=== PATIENT | female | born 1965 | race Caucasian/White ===

== ENCOUNTER → 2016-11-07 | Day surgery (SDC) | payer OTHER ==
[~2016-11-07] VITALS: Ht 170.1 cm; Wt 72.6 kg
[~2016-11-07] MED LIST: ALBUTEROL0.09 MG/A2 INH; ASPIRIN NON IR325 MG PO; CIPROFLOXACIN500 MG PO; HYDROCODONE BIT1 T11 PO; MOTRIN800 MG PO; NKHM PO; NORCO 5-325 TA1 EACH PO; PERCOCET 325 MG1 TA2 PO; PHENERGAN25 M1 PO; PRAVACHOL40 MG PO; Wellbutrin Sr100 MG PO; ZITHROMAX Z PA250 MG PO
--- NOTE | ~2016-11-07 | O ---
[place], [place] OPERATIVE NOTE NAME: OFE PANDYA [facility] #: [id number] UNIT #: [id number] ROOM: DOCTOR: REESE RODAS MD BIRTHDATE: [birth year] DOS: 11/07/2016 PREOPERATIVE DIAGNOSIS: Carcinoma of the left breast, need for chemotherapy, hence need for MediPort. POSTOPERATIVE DIAGNOSIS: Carcinoma of the left breast, need for chemotherapy, hence need for MediPort. PROCEDURE: Right subclavian MediPort insertion under fluoroscopy. SURGEON: Reese Rodas MD DESCRIPTION OF PROCEDURE: After MAC anesthesia, the right subclavicular area prepped and draped in normal sterile fashion. The 1% Xylocaine and bicarbonate infiltrated under the lateral one third of the clavicle and using a long needle, the subclavian vein was accessed. The guidewire inserted through the needle into superior vena cava under direct visualization with fluoroscopy. The needle is removed and entry site enlarged and using a dilator with sheath it inserted over the guidewire into superior vena cava. The dilator and guidewire were removed and through the sheath, 8-E[place]ian catheter inserted in superior vena cava and then sheath is removed. At this time, incision made below that area and a pocket is created. The catheter cut to size and port is attached to it with the clip on and this was confirmed with the fluoroscopy that there is no kinking or twisting and is in superior vena cava. I had no trouble accessing the vein for the first time, hence I doubt there will be any pneumothorax. The subcutaneous port is tacked to the subclavius fascia with 3-0 PDS and subcutaneous tissue closed with 3-0 PDS, skin with 4-0 PDS, subcutaneous suture. Before closure, the flushing of the port is done using the heparinized solution and a good irrigation returned. After application of the dressing, the patient tolerated the procedure, was sent to room. We will get the x-ray of the chest wall just to make sure no pneumothorax. Reese Rodas MD CM:OPRECORD:OPERATIVE NOTE [id number] REESE RODAS MD 11/08/16 183 interface
[2016-11-07 09:00] VITALS: BP 108/60
[2016-11-07 10:58] VITALS: BP 109/67
[2016-11-07 11:13] VITALS: BP 120/74
[2016-11-07 11:28] VITALS: BP 115/72
[2016-11-07 11:43] VITALS: BP 110/70
[2016-11-07 12:03] VITALS: BP 110/69
== END | disposition home or self-care (01) ==
LOC: SDC 11-04 15:30
DX: C50.412 Malignant neoplasm of upper-outer quadrant of left female breast (principal); E78.00 Pure hypercholesterolemia, unspecified; Z87.891 Personal history of nicotine dependence

== ENCOUNTER → 2017-03-30 | Day surgery (SDC) | payer OTHER ==
[2017-03-27 12:53] LABS: BILIRUBIN NEGATIVE (NEGATIVE); BLOOD NEGATIVE (NEGATIVE); CLARITY CLEAR (CLEAR); COLOR YELLOW (YELLOW); GLUCOSE NEGATIVE (NEGATIVE); KETONE NEGATIVE (NEGATIVE); LEUKO ESTERASE NEGATIVE (NEGATIVE); NITRITE NEGATIVE (NEGATIVE); PH 5.5 (5.0-9.0); PROTEIN NEGATIVE (NEGATIVE); SPECIFIC GRAVITY <= 1.005 (1.005-1.030); UROBILINOGEN 0.2 E.U./dl (0.2-1.0)
[2017-03-27 12:56] LABS: BASO % 0.7 % (0.0-1.0); EOS # 0.3 10*3/uL (0.0-0.4); EOS % 4.9 % (1.0-4.0); HEMATOCRIT 42.2 % (37.0-47.0); HEMOGLOBIN 14.3 g/dl (12.0-16.0); LYMPH # 1.9 10*3/uL (1.3-4.4); LYMPH % 32.8 % (27.0-41.0); MEAN CELL VOLUME 93.2 fl (81.0-99.0); MEAN CORPUSCULAR HGB 31.6 pg (27.0-31.0); MEAN CORPUSCULAR HGB CONC 33.9 g/dl (33.0-37.0); MONO # 0.4 10*3/uL (0.1-1.0); MONO % 6.6 % (3.0-9.0); NEUT # 3.1 10*3/uL (2.3-7.9); NEUT % 54.7 % (47.0-73.0); PLATELET COUNT AUTOMATED 153 10*3/uL (130-400); RED BLOOD COUNT 4.53 10*6/uL (4.10-5.10); RED CELL DISTRI WIDTH 11.9 % (0-14.5); WHITE BLOOD COUNT 5.7 10*3/uL (4.8-10.8)
[2017-03-27 13:18] LABS: BUN 10 mg/dl (7-24); CARBON DIOXIDE 28 mmol/L (21-32); CHLORIDE 108 mmol/L (98-107); EST GLOM FILT AFRICAN AMERICAN > 60 ml/min; GLUCOSE 114 mg/dL (65-99); POTASSIUM 4.4 mmol/L (3.5-5.1); SODIUM 143 mmol/L (136-145)
[2017-03-27 13:38] LABS: INTERNATIONAL NORM RATIO 0.9 (2.0-3.5)
[2017-03-27 13:46] LABS: EPITHELIAL CELLS 0-2; WBC 0-2 wbc/hpf (0-5)
--- NOTE | ~2017-03-30 | PROC NOTE ---
[place], [place] PROCEDURE NOTE NAME: OFE PANDYA [facility] #: [id number] UNIT #: [id number] ROOM: DOCTOR: MEETA VELAZQUEZ MD BIRTHDATE: [birth year] DOS: 03/30/2017 PREOPERATIVE DIAGNOSIS: Right internal jugular MediPort. POSTOPERATIVE DIAGNOSIS: Right internal jugular MediPort. PROCEDURE: Removal of right-sided MediPort. SURGEON: Meeta Velazquez MD HOME VISIT FIELD CARE MANAGER: [id number]. ANESTHESIA: MAC. INDICATIONS: This is a 51-year-old lady who had a right-sided MediPort placed a few months ago for the purposes chemotherapy for breast cancer, who now desires its removal. The patient has finished her chemotherapy. The procedure and its complications explained to the patient in detail. Complications that were discussed included but were not limited to bleeding, infection, hematoma/seroma/abscess formation, prolonged pain. She agreed to proceed. DESCRIPTION OF PROCEDURE: After identifying the patient, the patient was brought to the operating suite and laid in the supine position. After IV sedation was administered, a timeout procedure was called and the parts were then painted and draped in the usual sterile fashion. Local anesthesia was infiltrated in the line of incision that was made to place the MediPort. The skin and the subcutaneous tissues were incised. The MediPort itself was grasped with the help of an Allis forceps and then pulled out along with the catheter. Pressure was used to stop the bleeding from the MediPort catheter site. Thereafter, the subcutaneous tissue was irrigated and approximated with the help of 3-0 Vicryl in an interrupted fashion and the skin edges were approximated with the help of 4-0 Vicryl in a subcuticular running fashion. Dressing was placed. The patient tolerated the procedure well. There were no complications. Dr. Meeta Velazquez, the attending surgeon, was present throughout the operating case. Meeta Velazquez MD CM:PROCNOTE:PROCEDURE NOTE [id number] MEETA VELAZQUEZ MD
[2017-03-30 10:00] VITALS: BP 100/50
[2017-03-30 11:12] VITALS: BP 92/43
[2017-03-30 11:28] VITALS: BP 90/48
[2017-03-30 11:41] VITALS: BP 101/57
== END | disposition home or self-care (01) ==
LOC: SDC 03-27 11:00
PROVIDERS: Surgery
DX: C50.919 Malignant neoplasm of unspecified site of unspecified female breast (principal); Z87.01 Personal history of pneumonia (recurrent); Z98.890 Other specified postprocedural states; Z87.891 Personal history of nicotine dependence

== ENCOUNTER 2017-05-06 13:46 | Emergency (ER) | payer OTHER ==
[~2017-05-06] VITALS: Ht 170.1 cm; Wt 77.1 kg
[2017-05-06] MEDS ORDERED: VITAMIN D1000 IU PO (14:05)
[2017-05-06] MEDS ORDERED: ARIMIDEX1 MG PO (14:06)
[2017-05-06] MEDS ORDERED: CEFADROXIL500 M1 PO (14:22)
== END 2017-05-06 14:32 | disposition home or self-care (01) ==
LOC: ED 13:46
DX: Z48.01 Encounter for change or removal of surgical wound dressing (principal); Z79.899 Other long term (current) drug therapy; Z79.82 Long term (current) use of aspirin

== ENCOUNTER → 2018-01-30 | Outpatient (CLI) | payer OTHER ==
[~2018-01-30] MED LIST changes: +ARIMIDEX1 MG PO; +CEFADROXIL500 M1 PO; +VITAMIN D1000 IU PO
[2018-01-30 12:31] LABS: BASO # 0.1 10*3/uL (0.0-0.1); EOS # 0.2 10*3/uL (0.0-0.4); EOS % 2.2 % (1.0-4.0); HEMATOCRIT 45.4 % (37.0-47.0); LYMPH # 2.7 10*3/uL (1.3-4.4); LYMPH % 30.6 % (27.0-41.0); MEAN CELL VOLUME 93.6 fl (81.0-99.0); MEAN CORPUSCULAR HGB 30.9 pg (27.0-31.0); MEAN PLATELET VOLUME 9.8 fl (9.6-12.3); MONO # 0.5 10*3/uL (0.1-1.0); MONO % 5.8 % (3.0-9.0); NEUT # 5.3 10*3/uL (2.3-7.9); NEUT % 60.1 % (47.0-73.0); PLATELET COUNT AUTOMATED 169 10*3/uL (130-400); RED BLOOD COUNT 4.85 10*6/uL (4.10-5.10); RED CELL DISTRI WIDTH 12.6 % (0-14.5); WHITE BLOOD COUNT 8.9 10*3/uL (4.8-10.8)
== END | disposition home or self-care (01) ==
LOC: LAB 11:26
PROVIDERS: Internal Medicine Hematology & Oncology
DX: C50.412 Malignant neoplasm of upper-outer quadrant of left female breast (principal); Z17.0 Estrogen receptor positive status [ER+]

== ENCOUNTER 2018-04-03 02:56 | Emergency (ER) | payer OTHER ==
[~2018-04-03] VITALS: Ht 170.1 cm; Wt 78.5 kg
[2018-04-03] MEDS ORDERED: Orphenadrine C100 MG PO (03:30)
[2018-04-03] MEDS ORDERED: PREDNISONE20 M1 PO (03:30)
== END 2018-04-03 03:41 | disposition home or self-care (01) ==
LOC: ED 02:56
DX: M54.32 Sciatica, left side (principal); Z79.899 Other long term (current) drug therapy; Z79.82 Long term (current) use of aspirin

== ENCOUNTER → 2018-04-09 | Outpatient (CLI) | payer OTHER ==
[~2018-04-09] MED LIST changes: +Orphenadrine C100 MG PO; +PREDNISONE20 M1 PO
== END | disposition home or self-care (01) ==
LOC: MRI 07:52
DX: M51.26 Other intervertebral disc displacement, lumbar region (principal); M47.897 Other spondylosis, lumbosacral region

== ENCOUNTER → 2019-10-11 | Outpatient (CLI) | payer OTHER ==
[2019-10-11 10:18] LABS: BASO # 0.1 10*3/uL (0.0-0.1); BASO % 0.9 % (0.0-1.0); EOS # 0.3 10*3/uL (0.0-0.4); EOS % 3.6 % (1.0-4.0); HEMATOCRIT 44.7 % (37.0-47.0); HEMOGLOBIN 14.8 g/dl (12.0-16.0); LYMPH # 2.9 10*3/uL (1.3-4.4); LYMPH % 37.4 % (27.0-41.0); MEAN CELL VOLUME 94.9 fl (81.0-99.0); MEAN CORPUSCULAR HGB 31.4 pg (27.0-31.0); MEAN CORPUSCULAR HGB CONC 33.1 g/dl (33.0-37.0); MEAN PLATELET VOLUME 9.8 fl (9.6-12.3); MONO # 0.4 10*3/uL (0.1-1.0); MONO % 5.7 % (3.0-9.0); NEUT % 52.1 % (47.0-73.0); PLATELET COUNT AUTOMATED 160 10*3/uL (130-400); RED BLOOD COUNT 4.71 10*6/uL (4.10-5.10); RED CELL DISTRI WIDTH 12.2 % (0-14.5); WHITE BLOOD COUNT 7.7 10*3/uL (4.8-10.8)
[2019-10-11 10:41] LABS: ALBUMIN 3.9 gm/dl (3.1-4.5); ALKALINE PHOSPHATASE 86 U/L (45-117); BUN 18 mg/dl (7-24); CHLORIDE 109 mmol/L (98-107); CHOLESTEROL 180 mg/dL (<200); CREATININE 0.89 mg/dL (0.55-1.02); FREE T4 0.75 ng/dl (0.76-1.46); HDL CHOLESTEROL 81 mg/dl (40-60); LDL CHOLESTEROL 83 mg/dL (9-159); SGOT/AST 37 IU/L (3-35); SGPT/ALT 47 U/L (12-78); SODIUM 141 mmol/L (136-145); TRIGLYCERIDES 81 mg/dl (<150); VLDL CHOLESTEROL 16 mg/dL (6-40)
== END | disposition home or self-care (01) ==
LOC: LAB 09:36
PROVIDERS: Internal Medicine
DX: E55.9 Vitamin D deficiency, unspecified (principal); E78.2 Mixed hyperlipidemia; D51.9 Vitamin B12 deficiency anemia, unspecified; I10 Essential (primary) hypertension

== ENCOUNTER 2019-10-30 21:41 | Emergency (ER) | payer OTHER ==
[~2019-10-30] VITALS: Ht 165.1 cm; Wt 67.6 kg
== END 2019-10-30 22:39 | disposition home or self-care (01) ==
LOC: ED 21:41
DX: L50.8 Other urticaria (principal); T38.1X5A Adverse effect of thyroid hormones and substitutes, initial encounter; Z79.899 Other long term (current) drug therapy; Z79.82 Long term (current) use of aspirin; Y92.89 Other specified places as the place of occurrence of the external cause

== ENCOUNTER → 2020-02-19 | Outpatient (CLI) | payer OTHER ==
[2020-02-19 09:59] LABS: BASO # 0.1 10*3/uL (0.0-0.1); BASO % 0.9 % (0.0-1.0); EOS # 0.2 10*3/uL (0.0-0.4); HEMATOCRIT 44.9 % (37.0-47.0); LYMPH # 2.6 10*3/uL (1.3-4.4); LYMPH % 34.3 % (27.0-41.0); MEAN CELL VOLUME 92.6 fl (81.0-99.0); MEAN CORPUSCULAR HGB 31.1 pg (27.0-31.0); MEAN CORPUSCULAR HGB CONC 33.6 g/dl (33.0-37.0); MEAN PLATELET VOLUME 9.4 fl (9.6-12.3); MONO # 0.6 10*3/uL (0.1-1.0); MONO % 7.5 % (3.0-9.0); NEUT % 54.2 % (47.0-73.0); PLATELET COUNT AUTOMATED 157 10*3/uL (130-400); RED BLOOD COUNT 4.85 10*6/uL (4.10-5.10); RED CELL DISTRI WIDTH 12.2 % (0-14.5); WHITE BLOOD COUNT 7.4 10*3/uL (4.8-10.8)
[2020-02-19 10:13] LABS: ALBUMIN 3.9 gm/dl (3.1-4.5); ALKALINE PHOSPHATASE 91 U/L (45-117); BUN 20 mg/dl (7-24); CHLORIDE 109 mmol/L (98-107); CREATININE 0.87 mg/dL (0.55-1.02); POTASSIUM 4.1 mmol/L (3.5-5.1); SGOT/AST 29 IU/L (3-35); SGPT/ALT 39 U/L (12-78); SODIUM 142 mmol/L (136-145); TOTAL PROTEIN 7.1 gm/dL (6.4-8.2)
[2020-02-19 10:24] LABS: FREE T4 0.88 ng/dl (0.76-1.46); THYROID STIM HORMONE (HS) 0.629 uIU/ml (0.358-4.75)
== END | disposition home or self-care (01) ==
LOC: LAB 09:17
PROVIDERS: Internal Medicine; Internal Medicine Hematology & Oncology
DX: C50.811 Malignant neoplasm of overlapping sites of right female breast (principal); M85.88 Other specified disorders of bone density and structure, other site; E03.9 Hypothyroidism, unspecified; Z17.0 Estrogen receptor positive status [ER+]; Z79.810 Long term (current) use of selective estrogen receptor modulators (SERMs)

== ENCOUNTER → 2020-10-15 | Outpatient (CLI) | payer OTHER | END | disposition home or self-care (01) | LOC: COVID19 12:50 | PROVIDERS: ATTEND Internal Medicine | DX: U07.1 COVID-19 (principal) ==

== ENCOUNTER 2020-10-16 11:02 | Emergency (ER) | payer OTHER ==
[~2020-10-16] VITALS: Ht 165.1 cm; Wt 63.5 kg
[2020-10-16 11:44] LABS: HEMATOCRIT 42.9 % (37.0-47.0); LYMPH # 0.7 10*3/uL (1.3-4.4); LYMPH % 17.2 % (27.0-41.0); MEAN CELL VOLUME 91.7 fl (81.0-99.0); MEAN CORPUSCULAR HGB 29.9 pg (27.0-31.0); MEAN CORPUSCULAR HGB CONC 32.6 g/dl (33.0-37.0); MEAN PLATELET VOLUME 10.1 fl (9.6-12.3); MONO # 0.2 10*3/uL (0.1-1.0); MONO % 4.5 % (3.0-9.0); NEUT # 2.9 10*3/uL (2.3-7.9); NEUT % 77.8 % (47.0-73.0); PLATELET COUNT AUTOMATED 82 10*3/uL (130-400); RED BLOOD COUNT 4.68 10*6/uL (4.10-5.10); RED CELL DISTRI WIDTH 12.4 % (0-14.5); WHITE BLOOD COUNT 3.8 10*3/uL (4.8-10.8)
[2020-10-16 11:52] LABS: ACT PARTIAL THROMBO TIME 28.6 SECONDS (20.0-32.1)
[2020-10-16 11:57] LABS: ALBUMIN 3.4 gm/dl (3.1-4.5); ALKALINE PHOSPHATASE 73 U/L (45-117); BUN 10 mg/dl (7-24); CHLORIDE 110 mmol/L (98-107); CREATININE 0.75 mg/dL (0.55-1.02); POTASSIUM 3.7 mmol/L (3.5-5.1); SGOT/AST 50 IU/L (3-35); SGPT/ALT 47 U/L (12-78); SODIUM 140 mmol/L (136-145); TOTAL PROTEIN 6.6 gm/dL (6.4-8.2)
== END 2020-10-16 19:34 | disposition home or self-care (01) ==
LOC: ED 11:02
PROVIDERS: Emergency Medicine
DX: U07.1 COVID-19 (principal); R55 Syncope and collapse; E03.9 Hypothyroidism, unspecified; Z79.899 Other long term (current) drug therapy

== ENCOUNTER → 2021-02-22 | Outpatient (CLI) | payer OTHER ==
[2021-02-22 11:45] LABS: BASO % 0.6 % (0.0-1.0); EOS # 0.2 10*3/uL (0.0-0.4); EOS % 3.5 % (1.0-4.0); HEMATOCRIT 44.5 % (37.0-47.0); LYMPH # 2.3 10*3/uL (1.3-4.4); LYMPH % 33.1 % (27.0-41.0); MEAN CELL VOLUME 91.2 fl (81.0-99.0); MEAN CORPUSCULAR HGB 30.3 pg (27.0-31.0); MEAN CORPUSCULAR HGB CONC 33.3 g/dl (33.0-37.0); MEAN PLATELET VOLUME 9.5 fl (9.6-12.3); MONO # 0.4 10*3/uL (0.1-1.0); MONO % 5.2 % (3.0-9.0); NEUT # 3.9 10*3/uL (2.3-7.9); NEUT % 57.5 % (47.0-73.0); PLATELET COUNT AUTOMATED 142 10*3/uL (130-400); RED BLOOD COUNT 4.88 10*6/uL (4.10-5.10); RED CELL DISTRI WIDTH 12.2 % (0-14.5); WHITE BLOOD COUNT 6.9 10*3/uL (4.8-10.8)
[2021-02-22 12:36] LABS: BUN 12 mg/dl (7-24); CHLORIDE 111 mmol/L (98-107); POTASSIUM 4.2 mmol/L (3.5-5.1); SODIUM 143 mmol/L (136-145)
[2021-02-22 12:40] LABS: ALKALINE PHOSPHATASE 69 U/L (45-117); CREATININE 0.95 mg/dL (0.55-1.02); SGOT/AST 47 IU/L (3-35); SGPT/ALT 61 U/L (12-78); TOTAL PROTEIN 7.1 gm/dL (6.4-8.2)
== END | disposition home or self-care (01) ==
LOC: LAB 11:07
PROVIDERS: ATTEND Internal Medicine Hematology & Oncology
DX: C50.812 Malignant neoplasm of overlapping sites of left female breast (principal); Z17.0 Estrogen receptor positive status [ER+]

== ENCOUNTER → 2021-08-31 | Outpatient (CLI) | payer OTHER ==
[2021-08-31 10:47] LABS: BASO # 0.1 10*3/uL (0.0-0.1); BASO % 0.9 % (0.0-1.0); EOS # 0.2 10*3/uL (0.0-0.4); EOS % 2.7 % (1.0-4.0); HEMATOCRIT 44.5 % (37.0-47.0); LYMPH # 2.7 10*3/uL (1.3-4.4); LYMPH % 29.4 % (27.0-41.0); MEAN CELL VOLUME 93.1 fl (81.0-99.0); MEAN CORPUSCULAR HGB 30.8 pg (27.0-31.0); MEAN PLATELET VOLUME 9.5 fl (9.6-12.3); MONO # 0.6 10*3/uL (0.1-1.0); MONO % 7.1 % (3.0-9.0); NEUT # 5.4 10*3/uL (2.3-7.9); NEUT % 59.7 % (47.0-73.0); PLATELET COUNT AUTOMATED 141 10*3/uL (130-400); RED BLOOD COUNT 4.78 10*6/uL (4.10-5.10); RED CELL DISTRI WIDTH 12.2 % (0-14.5)
[2021-08-31 11:03] LABS: ALBUMIN 3.7 gm/dl (3.1-4.5); ALKALINE PHOSPHATASE 67 U/L (45-117); BUN 19 mg/dl (7-24); CHLORIDE 110 mmol/L (98-107); CREATININE 0.83 mg/dL (0.55-1.02); POTASSIUM 3.9 mmol/L (3.5-5.1); SGOT/AST 44 IU/L (3-35); SGPT/ALT 56 U/L (12-78); SODIUM 141 mmol/L (136-145)
== END | disposition home or self-care (01) ==
LOC: LAB 09:39
PROVIDERS: ATTEND Internal Medicine Hematology & Oncology
DX: C50.812 Malignant neoplasm of overlapping sites of left female breast (principal); Z17.0 Estrogen receptor positive status [ER+]

== ENCOUNTER → 2022-03-04 | Outpatient (CLI) | payer OTHER ==
[2022-03-04 13:03] LABS: BASO # 0.1 10*3/uL (0.0-0.1); BASO % 0.9 % (0.0-1.0); EOS # 0.2 10*3/uL (0.0-0.4); EOS % 2.5 % (1.0-4.0); HEMATOCRIT 43.6 % (37.0-47.0); LYMPH # 1.9 10*3/uL (1.3-4.4); LYMPH % 28.4 % (27.0-41.0); MEAN CELL VOLUME 91.4 fl (81.0-99.0); MEAN CORPUSCULAR HGB 31.2 pg (27.0-31.0); MEAN CORPUSCULAR HGB CONC 34.2 g/dl (33.0-37.0); MEAN PLATELET VOLUME 9.4 fl (9.6-12.3); MONO # 0.5 10*3/uL (0.1-1.0); MONO % 6.7 % (3.0-9.0); NEUT # 4.1 10*3/uL (2.3-7.9); NEUT % 61.2 % (47.0-73.0); PLATELET COUNT AUTOMATED 146 10*3/uL (130-400); RED BLOOD COUNT 4.77 10*6/uL (4.10-5.10); RED CELL DISTRI WIDTH 12.3 % (0-14.5); WHITE BLOOD COUNT 6.7 10*3/uL (4.8-10.8)
[2022-03-04 13:19] LABS: ALKALINE PHOSPHATASE 64 U/L (45-117); BUN 18 mg/dl (7-24); CHLORIDE 110 mmol/L (98-107); CHOLESTEROL 163 mg/dL (<200); CPK 154 U/L (26-192); CREATININE 0.95 mg/dL (0.55-1.02); LDL CHOLESTEROL 67 mg/dL (9-159); POTASSIUM 4.1 mmol/L (3.5-5.1); SGOT/AST 41 IU/L (3-35); SGPT/ALT 52 U/L (12-78); SODIUM 140 mmol/L (136-145); T3 UPTAKE 34 % (31-39); TOTAL PROTEIN 7.2 gm/dL (6.4-8.2); TRIGLYCERIDES 43 mg/dl (<150)
[2022-03-04 13:24] LABS: THYROID STIM HORMONE (HS) 0.577 uIU/ml (0.358-4.75)
== END | disposition home or self-care (01) ==
LOC: LAB 12:46
PROVIDERS: ATTEND Internal Medicine
DX: D51.9 Vitamin B12 deficiency anemia, unspecified (principal); E78.2 Mixed hyperlipidemia; E55.9 Vitamin D deficiency, unspecified; E03.9 Hypothyroidism, unspecified; R74.8 Abnormal levels of other serum enzymes; Z13.0 Encounter for screening for diseases of the blood and blood-forming organs and certain disorders involving the immune mechanism; Z13.1 Encounter for screening for diabetes mellitus; Z13.228 Encounter for screening for other metabolic disorders; Z13.29 Encounter for screening for other suspected endocrine disorder; Z13.220 Encounter for screening for lipoid disorders; Z13.6 Encounter for screening for cardiovascular disorders; Z13.89 Encounter for screening for other disorder; Z13.9 Encounter for screening, unspecified

== ENCOUNTER → 2022-03-21 | Outpatient (CLI) | payer OTHER ==
[2022-03-21 11:52] LABS: BASO # 0.1 10*3/uL (0.0-0.1); BASO % 0.8 % (0.0-1.0); EOS # 0.1 10*3/uL (0.0-0.4); EOS % 1.5 % (1.0-4.0); HEMATOCRIT 42.8 % (37.0-47.0); LYMPH # 1.5 10*3/uL (1.3-4.4); LYMPH % 22.4 % (27.0-41.0); MEAN CELL VOLUME 94.5 fl (81.0-99.0); MEAN CORPUSCULAR HGB 31.8 pg (27.0-31.0); MEAN CORPUSCULAR HGB CONC 33.6 g/dl (33.0-37.0); MEAN PLATELET VOLUME 9.4 fl (9.6-12.3); MONO # 0.4 10*3/uL (0.1-1.0); MONO % 5.6 % (3.0-9.0); NEUT # 4.5 10*3/uL (2.3-7.9); NEUT % 68.5 % (47.0-73.0); PLATELET COUNT AUTOMATED 141 10*3/uL (130-400); RED BLOOD COUNT 4.53 10*6/uL (4.10-5.10); RED CELL DISTRI WIDTH 12.3 % (0-14.5); WHITE BLOOD COUNT 6.6 10*3/uL (4.8-10.8)
[2022-03-21 12:28] LABS: BUN 12 mg/dl (7-24); CHLORIDE 110 mmol/L (98-107); SGOT/AST 45 IU/L (3-35); SGPT/ALT 61 U/L (12-78); SODIUM 142 mmol/L (136-145)
[2022-03-21 12:30] LABS: ALKALINE PHOSPHATASE 67 U/L (45-117); CREATININE 0.84 mg/dL (0.55-1.02); TOTAL PROTEIN 6.6 gm/dL (6.4-8.2)
== END | disposition home or self-care (01) ==
LOC: LAB 11:23
PROVIDERS: ATTEND Internal Medicine Hematology & Oncology
DX: C50.812 Malignant neoplasm of overlapping sites of left female breast (principal); M85.88 Other specified disorders of bone density and structure, other site; Z17.0 Estrogen receptor positive status [ER+]; Z79.811 Long term (current) use of aromatase inhibitors

== ENCOUNTER → 2022-09-20 | Outpatient (CLI) | payer OTHER ==
[2022-09-20 11:32] LABS: BASO # 0.1 10*3/uL (0.0-0.1); EOS # 0.2 10*3/uL (0.0-0.4); EOS % 2.9 % (1.0-4.0); MEAN CELL VOLUME 93.2 fl (81.0-99.0); MEAN CORPUSCULAR HGB 31.7 pg (27.0-31.0); MEAN PLATELET VOLUME 9.5 fl (9.6-12.3); MONO # 0.5 10*3/uL (0.1-1.0); MONO % 5.5 % (3.0-9.0); NEUT # 5.6 10*3/uL (2.3-7.9); NEUT % 66.4 % (47.0-73.0); PLATELET COUNT AUTOMATED 156 10*3/uL (130-400); RED BLOOD COUNT 4.83 10*6/uL (4.10-5.10); RED CELL DISTRI WIDTH 12.3 % (0-14.5); WHITE BLOOD COUNT 8.4 10*3/uL (4.8-10.8)
[2022-09-20 11:57] LABS: ALKALINE PHOSPHATASE 66 U/L (46-116); BUN 16 mg/dl (9-23); CHLORIDE 106 mmol/L (98-107); CREATININE 0.94 mg/dL (0.55-1.02); POTASSIUM 4.5 mmol/L (3.4-5.1); SGPT/ALT 47 U/L (10-49); SODIUM 142 mmol/L (136-145); TOTAL PROTEIN 7.1 gm/dL (6.0-8.0)
== END | disposition home or self-care (01) ==
LOC: LAB 11:08
PROVIDERS: ATTEND Internal Medicine Hematology & Oncology
DX: C50.812 Malignant neoplasm of overlapping sites of left female breast (principal); Z17.0 Estrogen receptor positive status [ER+]; Z79.811 Long term (current) use of aromatase inhibitors; M85.88 Other specified disorders of bone density and structure, other site

== ENCOUNTER → 2023-03-07 | Outpatient (CLI) | payer OTHER ==
[~2023-03-07] MED LIST changes: +LEVOTHYROXINE50 MCG PO; +VITAMIN E180 M1 PO
[2023-03-07 14:28] LABS: BASO % 0.4 % (0.0-1.0); EOS # 0.1 10*3/uL (0.0-0.4); EOS % 1.2 % (1.0-4.0); HEMATOCRIT 45.1 % (37.0-47.0); LYMPH # 1.8 10*3/uL (1.3-4.4); LYMPH % 19.1 % (27.0-41.0); MEAN CELL VOLUME 93.4 fl (81.0-99.0); MEAN CORPUSCULAR HGB 32.1 pg (27.0-31.0); MEAN CORPUSCULAR HGB CONC 34.4 g/dl (33.0-37.0); MEAN PLATELET VOLUME 9.5 fl (9.6-12.3); MONO # 0.4 10*3/uL (0.1-1.0); MONO % 4.7 % (3.0-9.0); NEUT # 6.8 10*3/uL (2.3-7.9); NEUT % 74.1 % (47.0-73.0); PLATELET COUNT AUTOMATED 142 10*3/uL (130-400); RED BLOOD COUNT 4.83 10*6/uL (4.10-5.10); RED CELL DISTRI WIDTH 12.2 % (0-14.5); WHITE BLOOD COUNT 9.2 10*3/uL (4.8-10.8)
[2023-03-07 15:00] LABS: ALKALINE PHOSPHATASE 57 U/L (46-116); BUN 11 mg/dl (9-23); CHLORIDE 107 mmol/L (98-107); CHOLESTEROL 159 mg/dL (<200); FREE T4 1.03 ng/dl (0.89-1.76); LDL CHOLESTEROL 70 mg/dL (9-159); SGPT/ALT 30 U/L (10-49); THYROID STIM HORMONE (HS) 0.591 uIU/ml (0.550-4.780); TOTAL PROTEIN 7.1 gm/dL (6.0-8.0); TRIGLYCERIDES 92 mg/dl (<150)
[2023-03-07 15:01] LABS: VITAMIN D, 25-HYDROXY 50.5 ng/mL (30-100)
== END | disposition home or self-care (01) ==
LOC: LAB 13:57
PROVIDERS: ATTEND Internal Medicine
DX: Z13.0 Encounter for screening for diseases of the blood and blood-forming organs and certain disorders involving the immune mechanism (principal); Z13.1 Encounter for screening for diabetes mellitus; Z13.6 Encounter for screening for cardiovascular disorders; Z13.820 Encounter for screening for osteoporosis; D51.9 Vitamin B12 deficiency anemia, unspecified; E55.9 Vitamin D deficiency, unspecified

== ENCOUNTER → 2023-03-21 | Outpatient (CLI) | payer OTHER ==
[2023-03-21 09:34] LABS: BASO # 0.1 10*3/uL (0.0-0.1); EOS # 0.2 10*3/uL (0.0-0.4); HEMATOCRIT 44.5 % (37.0-47.0); LYMPH # 2.6 10*3/uL (1.3-4.4); LYMPH % 35.9 % (27.0-41.0); MEAN CELL VOLUME 93.3 fl (81.0-99.0); MEAN CORPUSCULAR HGB 32.1 pg (27.0-31.0); MEAN CORPUSCULAR HGB CONC 34.4 g/dl (33.0-37.0); MEAN PLATELET VOLUME 9.9 fl (9.6-12.3); MONO # 0.6 10*3/uL (0.1-1.0); NEUT # 3.7 10*3/uL (2.3-7.9); PLATELET COUNT AUTOMATED 138 10*3/uL (130-400); RED BLOOD COUNT 4.77 10*6/uL (4.10-5.10); RED CELL DISTRI WIDTH 12.2 % (0-14.5); WHITE BLOOD COUNT 7.1 10*3/uL (4.8-10.8)
[2023-03-21 10:05] LABS: ALKALINE PHOSPHATASE 58 U/L (46-116); BUN 15 mg/dl (9-23); CHLORIDE 108 mmol/L (98-107); SGPT/ALT 29 U/L (10-49); TOTAL PROTEIN 6.8 gm/dL (6.0-8.0)
== END | disposition home or self-care (01) ==
LOC: LAB 01:39
PROVIDERS: ATTEND Internal Medicine Hematology & Oncology
DX: C50.812 Malignant neoplasm of overlapping sites of left female breast (principal); M85.88 Other specified disorders of bone density and structure, other site; Z17.0 Estrogen receptor positive status [ER+]

== ENCOUNTER → 2023-09-20 | Outpatient (CLI) | payer OTHER ==
[2023-09-20 08:39] LABS: BASO # 0.1 10*3/uL (0.0-0.1); EOS # 0.3 10*3/uL (0.0-0.4); EOS % 3.1 % (1.0-4.0); HEMATOCRIT 44.1 % (37.0-47.0); LYMPH # 2.7 10*3/uL (1.3-4.4); MEAN CELL VOLUME 93.8 fl (81.0-99.0); MEAN CORPUSCULAR HGB 31.3 pg (27.0-31.0); MEAN CORPUSCULAR HGB CONC 33.3 g/dl (33.0-37.0); MEAN PLATELET VOLUME 9.2 fl (9.6-12.3); MONO # 0.6 10*3/uL (0.1-1.0); NEUT # 4.6 10*3/uL (2.3-7.9); NEUT % 55.7 % (47.0-73.0); PLATELET COUNT AUTOMATED 145 10*3/uL (130-400); RED CELL DISTRI WIDTH 12.5 % (0-14.5); WHITE BLOOD COUNT 8.2 10*3/uL (4.8-10.8)
[2023-09-20 09:07] LABS: ALKALINE PHOSPHATASE 55 U/L (46-116); BUN 16 mg/dl (9-23); CHLORIDE 106 mmol/L (98-107); POTASSIUM 4.4 mmol/L (3.4-5.1); SGPT/ALT 25 U/L (5-49); TOTAL PROTEIN 6.9 gm/dL (6.0-8.0)
== END | disposition home or self-care (01) ==
LOC: LAB 08:25
PROVIDERS: ATTEND Internal Medicine Hematology & Oncology
DX: C50.812 Malignant neoplasm of overlapping sites of left female breast (principal); Z17.0 Estrogen receptor positive status [ER+]

== ENCOUNTER → 2024-03-27 | Outpatient (CLI) | payer OTHER ==
[2024-03-27 09:26] LABS: BASO # 0.1 10*3/uL (0.0-0.1); BASO % 0.7 % (0.0-1.0); EOS # 0.2 10*3/uL (0.0-0.4); EOS % 2.7 % (1.0-4.0); HEMATOCRIT 43.6 % (37.0-47.0); LYMPH % 28.3 % (27.0-41.0); MEAN CORPUSCULAR HGB 31.7 pg (27.0-31.0); MEAN CORPUSCULAR HGB CONC 33.7 g/dl (33.0-37.0); MEAN PLATELET VOLUME 9.6 fl (9.6-12.3); MONO # 0.5 10*3/uL (0.1-1.0); MONO % 6.6 % (3.0-9.0); NEUT # 4.3 10*3/uL (2.3-7.9); NEUT % 61.6 % (47.0-73.0); PLATELET COUNT AUTOMATED 147 10*3/uL (130-400); RED BLOOD COUNT 4.64 10*6/uL (4.10-5.10); RED CELL DISTRI WIDTH 12.2 % (0-14.5)
[2024-03-27 10:11] LABS: VITAMIN D, 25-HYDROXY 50.6 ng/mL (30-100)
[2024-03-27 10:12] LABS: ALKALINE PHOSPHATASE 94 U/L (46-116); BUN 19 mg/dl (9-23); CHLORIDE 107 mmol/L (98-107); CHOLESTEROL 149 mg/dL (<200); CPK 122 U/L (34-171); FREE T4 1.14 ng/dl (0.89-1.76); LDL CHOLESTEROL 61 mg/dL (9-159); POTASSIUM 3.9 mmol/L (3.4-5.1); SGPT/ALT 21 U/L (5-49); TOTAL PROTEIN 6.9 gm/dL (6.0-8.0); TRIGLYCERIDES 65 mg/dl (<150)
== END | disposition home or self-care (01) ==
LOC: LAB 09:01
PROVIDERS: ATTEND Internal Medicine
DX: Z13.0 Encounter for screening for diseases of the blood and blood-forming organs and certain disorders involving the immune mechanism (principal); Z13.1 Encounter for screening for diabetes mellitus; Z13.21 Encounter for screening for nutritional disorder; Z13.220 Encounter for screening for lipoid disorders; Z13.228 Encounter for screening for other metabolic disorders; Z13.29 Encounter for screening for other suspected endocrine disorder; Z13.6 Encounter for screening for cardiovascular disorders; Z13.89 Encounter for screening for other disorder; Z13.9 Encounter for screening, unspecified; Z12.4 Encounter for screening for malignant neoplasm of cervix; J01.90 Acute sinusitis, unspecified; J01.01 Acute recurrent maxillary sinusitis

== ENCOUNTER → 2025-02-11 | Outpatient (CLI) | payer OTHER ==
[2025-02-11 10:36] LABS: BASO # 0.1 10*3/uL (0.0-0.1); BASO % 0.8 % (0.0-1.0); EOS # 0.2 10*3/uL (0.0-0.4); EOS % 1.9 % (1.0-4.0); HEMATOCRIT 45.2 % (37.0-47.0); MEAN CELL VOLUME 94.8 fl (81.0-99.0); MEAN CORPUSCULAR HGB 31.7 pg (27.0-31.0); MEAN CORPUSCULAR HGB CONC 33.4 g/dl (33.0-37.0); MEAN PLATELET VOLUME 9.7 fl (9.6-12.3); MONO # 0.5 10*3/uL (0.1-1.0); MONO % 6.6 % (3.0-9.0); NEUT # 5.4 10*3/uL (2.3-7.9); NEUT % 68.7 % (47.0-73.0); PLATELET COUNT AUTOMATED 140 10*3/uL (130-400); RED BLOOD COUNT 4.77 10*6/uL (4.10-5.10); WHITE BLOOD COUNT 7.9 10*3/uL (4.8-10.8)
[2025-02-11 11:06] LABS: ALKALINE PHOSPHATASE 96 U/L (46-116); BUN 18 mg/dl (9-23); CHLORIDE 106 mmol/L (98-107); CHOLESTEROL 168 mg/dL (<200); CPK 112 U/L (34-171); LDL CHOLESTEROL 76 mg/dL (9-159); POTASSIUM 4.4 mmol/L (3.4-5.1); SGPT/ALT 26 U/L (5-49); TOTAL PROTEIN 6.9 gm/dL (6.0-8.0); TRIGLYCERIDES 53 mg/dl (<150)
[2025-02-11 11:17] LABS: VITAMIN D, 25-HYDROXY 52.2 ng/mL (30-100)
== END | disposition home or self-care (01) ==
LOC: LAB 10:05
PROVIDERS: ATTEND Internal Medicine
DX: E78.2 Mixed hyperlipidemia (principal); E55.9 Vitamin D deficiency, unspecified; E03.9 Hypothyroidism, unspecified; D51.9 Vitamin B12 deficiency anemia, unspecified; K76.0 Fatty (change of) liver, not elsewhere classified; R53.83 Other fatigue; R74.8 Abnormal levels of other serum enzymes; R79.89 Other specified abnormal findings of blood chemistry; F17.210 Nicotine dependence, cigarettes, uncomplicated